=== PATIENT | male | born 1960 | race Caucasian/White ===

== ENCOUNTER 2021-03-13 11:55 | Emergency (ER) | payer BC ==
[~2021-03-13] VITALS: Ht 185.4 cm; Wt 136.0 kg
[2021-03-13 12:23] LABS: BASOPHILS % (AUTO) 1 % (0-10); EOSINOPHILS # (AUTO) 0.1 10^3/uL (0.0-0.3); EOSINOPHILS % (AUTO) 1 % (0-10); HEMATOCRIT 44 % (40-54); HEMOGLOBIN 14.7 G/DL (13.3-17.7); LYMPHOCYTES # (AUTO) 1.8 X 10^3 (1.0-4.0); LYMPHOCYTES % (AUTO) 31 % (12-44); MEAN CORPUSCULAR HEMOGLOBIN 32 PG (25-34); MEAN CORPUSCULAR HGB CONC 34 G/DL (32-36); MEAN CORPUSCULAR VOLUME 94 FL (80-99); MEAN PLATELET VOLUME 8.5 FL (7.4-10.4); MONOCYTES # (AUTO) 0.5 X 10^3 (0.0-1.0); MONOCYTES % (AUTO) 9 % (0-12); NEUTROPHILS # (AUTO) 3.4 X 10^3 (1.8-7.8); NEUTROPHILS % (AUTO) 59 % (42-75); PLATELET COUNT 154 10^3/uL (130-400); WHITE BLOOD COUNT 5.8 10^3/uL (4.3-11.0)
[2021-03-13] MEDS ORDERED: WRF2.5T (12:30)
[2021-03-13] MEDS ORDERED: Fish Oil (12:30)
[2021-03-13] MEDS ORDERED: LISI40TA9 (12:30)
[2021-03-13] MEDS ORDERED: ALBUTEROL (12:30)
--- NOTE | 2021-03-13 12:30 | ED Dyspnea ---
General Chief Complaint: Respiratory Problems Stated Complaint: PULMONARY EMBOLISM Source of Information: Patient History of Present Illness Date Seen by Provider: Mar 13, 2021 Time Seen by Provider: 11:57 Initial Comments 60 yo male presenting from radiology after having a CT scan of his chest due to recurrent shortness of breath with history of recent pulmonary embolus from around May 2020. He states he was taken off of his Warfarin about 3-[address] Victor but he was getting short of breath again so they did a D dimer which was elevated. A CT scan of his chest today showed saddle embolus with right heart strain so he was referred to the ED for more emergent treatment. He gets winded with exertion but states it feels similar to when he was diagnosed last Fall with PE. He was admitted to [facility] for 4-5 days to start treatment at that time. They could not tell him why he was having blood clots. Modifying Factors: Worse With Activity Allergies and Home Medications Allergies Coded Allergies: morphine (Unverified Adverse Reaction, Unknown, 03/13/21) Patient Home Medication List Home Medication List Reviewed: Yes Review of Systems Review of Systems Constitutional: No chills, No fever EENTM: no symptoms reported Respiratory: dyspnea on exertion, short of breath Cardiovascular: No chest pain, No edema Gastrointestinal: no symptoms reported Genitourinary: no symptoms reported Musculoskeletal: no symptoms reported Skin: no symptoms reported Psychiatric/Neurological: No Symptoms Reported Hematologic/Lymphatic: Blood Clots Past Ybqciod-Codrve-Ozkqzm Hx Past Medical History Respiratory: Yes Pulmonary Embolism Cardiac: Yes Hypertension Physical Exam Vital Signs Vital Signs - First Documented 03/13/21 11:55 Temp 36.5 Pulse 88 Resp 20 B/P (MAP) 154/81 (105) Pulse Ox 98 O2 Delivery Room Air Capillary Refill : Height, Weight, BMI Height: '" Weight: lbs. oz. kg; BMI Method: General Appearance: No Apparent Distress, WD/WN HEENT: PERRL/EOMI, Pharynx Normal Neck: Full Range of Motion, Normal Inspection, Non Tender, Supple Respiratory: Chest Non Tender, Lungs Clear, Normal Breath Sounds, No Accessory Muscle Use, No Respiratory Distress Cardiovascular: Regular Rate, Rhythm, Normal Peripheral Pulses Neurologic/Psychiatric: Alert, Oriented x3 Skin: Normal Color, Warm/Dry Progress/Results/Core Measures Results/Orders Lab Results Laboratory Tests Test 03/13/21 12:13 Range/Units White Blood Count 5.8 4.3-11.0 10^3/uL Red Blood Count 4.64 4.35-5.85 10^6/uL Hemoglobin 14.7 13.3-17.7 G/DL Hematocrit 44 40-54 % Mean Corpuscular Volume 94 80-99 FL Mean Corpuscular Hemoglobin 32 25-34 PG Mean Corpuscular Hemoglobin Concent 34 32-36 G/DL Red Cell Distribution Width 13.6 10.0-14.5 % Platelet Count 154 130-400 10^3/uL Mean Platelet Volume 8.5 7.4-10.4 FL Immature Granulocyte % (Auto) 0 % Neutrophils (%) (Auto) 59 42-75 % Lymphocytes (%) (Auto) 31 12-44 % Monocytes (%) (Auto) 9 0-12 % Eosinophils (%) (Auto) 1 0-10 % Basophils (%) (Auto) 1 0-10 % Neutrophils # (Auto) 3.4 1.8-7.8 X 10^3 Lymphocytes # (Auto) 1.8 1.0-4.0 X 10^3 Monocytes # (Auto) 0.5 0.0-1.0 X 10^3 Eosinophils # (Auto) 0.1 0.0-0.3 10^3/uL Basophils # (Auto) 0.0 0.0-0.1 10^3/uL Immature Granulocyte # (Auto) 0.0 0.0-0.1 10^3/uL Prothrombin Time 13.6 12.2-14.7 SEC INR Comment 1.0 0.8-1.4 Activated Partial Thromboplast Time 29 24-35 SEC Troponin I < 0.30 <0.30 NG/ML Pro-B-Type Natriuretic Peptide 47.5 <75.0 PG/ML My Orders Orders - EVE SPENCE MD Cbc With Automated Diff (03/13/21 12:07) Protime With Inr (03/13/21 12:07) Partial Thromboplastin Time (03/13/21 12:07) Ed Iv/Invasive Line Start (03/13/21 12:07) Probnp Fs (03/13/21 12:22) Troponin I Fs (03/13/21 12:22) Heparin Drip 89342 Unit/500ml (Heparin (03/13/21 12:45) Heparin (Bolus Per Protocol) (Heparin (B (03/13/21 12:45) Medications Given in ED Current Medications Medications Dose Ordered Sig/Kelly Route Start Time Stop Time Status Last Admin Dose Admin Heparin Sodium (Porcine) 5,000 unit ONCE ONCE IV 03/13/21 12:45 03/13/21 12:46 DC 03/13/21 13:03 5,000 UNIT Heparin Sodium/ Dextrose 500 ml @ 0 mls/hr Q0M ONCE IV 03/13/21 12:45 03/13/21 12:46 DC 03/13/21 13:03 24 MLS/HR Vital Signs/I&O 03/13/21 11:55 Temp 36.5 Pulse 88 Resp 20 B/P (MAP) 154/81 (105) Pulse Ox 98 O2 Delivery Room Air Progress Progress Note #1: Progress Note pt sent from CT since his report shows saddle pulmonary embolus with right heart strain. Pt states nobody spoke with him to explain why he was in the ED and that he was just here for CT scan because he was having symptoms like last Fall when he had a pulmonary embolism. At that time he was admitted to [facility]. He was on warfarin until a few weeks ago when Dr. Victor had stopped it. The states that he was started having shortness of breath again and they did a D-dimer test which showed it was slightly elevated and told him to have a CT scan of his chest done today. Progress Note #2: Progress Note Dr. Campbell with radiology called and discussed the CT findings directly with me. The patient had a large clot burden and saddle embolus with right heart strain. Advised patient of these findings and by this point his coags and labs are back showing no acute significant normality on these. Will start him on heparin full protocol to treat for pulmonary embolism. Patient was asking about leaving to start the warfarin and I advised him that that would not be enough to immediately start treatment for his pulmonary embolism. He would need admission and was at risk of sudden because of the large blood clot in his lungs. He was fairly agreeable to evaluation and admission to did not want to go to [facility] and wanted to go [place]. He wanted to try being admitted to [facility] initially since he was there last Fall. Progress Note #3: Progress Note 1243 Ivy with [facility] contacted about possible transfer and she advised that they had no beds available so did not have capacity or capability for the patient. 1257 discussed with Sujata at the transfer center from [facility] and she advised that they also were at capacity and had no beds available so they did not have capacity capability for the patient. 1258 I spoke with Anthony at the [facility] access center and was advised that all [facility] facilities were on diversion for capacity and capability until at least March 18. 1303 ISATU Mejia, at [facility] contacted and took information about the patient. She stated that she would have to review the patient with the Physician Advisor to see if they had capacity and capability for the patient. She would then call me back. [id number] ISATU Mejia, called back and stated that Dr. Bernardo would accept the patient for transfer but they were waiting discharges to have open bed for the patient. She will call back as soon as a bed was available. [id number] Checked with ISATU Mejia, at transfer center and they are still working on finding bed placement. Pt remains stable. Diagnostic Imaging Diagonstic Imaging: CT Plain Films/CT/US/NM/MRI: chest Comments [facility]. [place], [place] NAME: LINDSAY VARELA [facility] REC#: [id number] PT STATUS: REG CLI : 1960 PHYSICIAN: VARGAS VICTOR MD ADMIT DATE: 03/13/21/RAD FS Draft Date of Exam:03/13/21 CT ANGIO CHEST W PROCEDURE: CT angiography of the chest with contrast. TECHNIQUE: Multiple contiguous axial images were obtained through the chest after uneventful bolus administration of intravenous contrast. 3D reconstructed CTA MIP acquisitions were also performed. Auto Exposure Controls were utilized during the CT exam to meet ALARA standards for radiation dose reduction. INDICATION: Shortness of breath, chest pain, elevated d-dimer. FINDINGS: The exam confirms a large burden of bilateral pulmonary arterial emboli. A nonocclusive bridging saddle embolus has its apex at the main pulmonary bifurcation extending into the left and right main pulmonary arteries with clot occlusive at the proximal left upper lobe pulmonary artery with at least some degree of thrombus extending into the remaining lobar branches. While the intraventricular septum is nondisplaced and unbowed there is relative prominence of the right ventricular cavity compared to the left ventricular cavity component of elevated right heart pressures cannot be excluded. There is no abnormal caval or hepatovenous reflux of contrast. The SVC is patent and there is no intracardiac chamber mass or thrombus. There is no pleural or pericardial effusion. There were no findings suggestive of pulmonary hemorrhage or lung infarct. There is trace bibasilar subsegmental atelectasis. No evidence for edema or pneumonia. No lung mass or adenopathy. There is no acute chest wall abnormality IMPRESSION: A large burden of bilateral pulmonary arterial emboli with incompletely occlusive bridging saddle embolus through the pulmonary arteries bifurcation extending into the bilateral upper middle and lower lobes occlusive at the left upper lobe level. No findings of lung infarct or pulmonary hemorrhage. A mild prominence of the right ventricle when compared to the left a component of at least mild right heart strain could not be excluded. No other secondary findings of elevated right heart pressures. No findings of neoplasm or acute pleural pathology. Results have been discussed with the Emergency Room physician at time of dictation. Dictated on workstation # [id number] Dict: 03/13/21 1205 Trans: 03/13/21 1233 [facility] [id number] Interpreted by: LILIA CAMPBELL Electronically signed by: Reviewed: Discussed w/Radiologist Departure Impression Primary Impression: Saddle embolus of pulmonary artery with acute cor pulmonale Qualified Codes: I26.02 - Saddle embolus of pulmonary artery with acute cor pulmonale Disposition: 02 XFER SHT-TRM HOSP Condition: Stable Transfer Transfer Reason: Patient preference (Pt and brother gave list of facilities to call and order to call them for pt to be admitted in [facility]) Time Spoke to Accepting Phy: 13:38 Transfer Progress Notes 1303 ISATU Mejia, from Transfer center given information about the patient. She will review with physician advisor and call back to see if they have a bed and capability to take the patient for admit there at or not. [id number] ISATU Mejia, called back and Dr. Bernardo is accepting physician for the patient. Will call back once a bed is available but waiting on discharge and bed to become available. 1910 EMS here to transport pt to [facility] Transfer Facility: [facility] Method of Transfer: EMS Departure-Patient Inst. Referrals: VARGAS VICTOR MD (PCP/Family) Primary Care Physician EVE SPENCE MD Mar 13, 2021 12:30
[2021-03-13 12:32] LABS: PROTHROMBIN TIME PATIENT 13.6 SEC (12.2-14.7)
[2021-03-13] MEDS ORDERED: HEParin 1000 UNIT/ML (10ML VIAL) FOR BOLUS IV ONE (12:45)
[2021-03-13] MEDS ORDERED: HEParin DRIP 25000 UNIT/500ML 500 ML IV ONE (12:45)
[2021-03-13 18:25] VITALS: BP 142/75
== END 2021-03-13 19:25 | disposition short-term general hospital (02) ==
LOC: EDUNIT# 11:57 → ER FS 11:58
DX: I26.02 Saddle embolus of pulmonary artery with acute cor pulmonale (principal); I10 Essential (primary) hypertension
CPT/HCPCS: 36415; 83880; 84484; 85025; 85610; 85730

== ENCOUNTER → 2021-03-13 | Outpatient (CLI) | payer BC ==
[~2021-03-13] MED LIST: ALBUTEROL; CATHETER FLUSH 10 ML SYR IV PRN; Fish Oil; HOLD METFORMIN - RECEIVED CONTRAST 20 ML VIAL IV SCH; IOHEXOL 350 MG/ML 100 ML (OMNIPAQUE 350) VIAL IV ONE; IOHEXOL 350 MG/ML 150 ML (OMNIPAQUE 350) VIAL IV ONE; LISI40TA9; NS 100 ML (IVPB) BAG IV ONE; WRF2.5T
[2021-03-13 11:17] LABS: CREATININE SERUM 1.11 MG/DL (0.60-1.30); POTASSIUM 4.7 MMOL/L (3.6-5.0)
[2021-03-13 11:18] LABS: ALBUMIN 4.4 GM/DL (3.2-4.5); BILIRUBIN,TOTAL 0.4 MG/DL (0.1-1.0); CALCIUM 9.4 MG/DL (8.5-10.1); TOTAL PROTEIN 7.9 GM/DL (6.4-8.2)
--- NOTE | 2021-03-13 12:33 | Diagnostic Imaging Report ---
PROCEDURE: CT angiography of the chest with contrast. TECHNIQUE: Multiple contiguous axial images were obtained through the chest after uneventful bolus administration of intravenous contrast. 3D reconstructed CTA MIP acquisitions were also performed. Auto Exposure Controls were utilized during the CT exam to meet ALARA standards for radiation dose reduction. INDICATION: Shortness of breath, chest pain, elevated d-dimer. FINDINGS: The exam confirms a large burden of bilateral pulmonary arterial emboli. A nonocclusive bridging saddle embolus has its apex at the main pulmonary bifurcation extending into the left and right main pulmonary arteries with clot occlusive at the proximal left upper lobe pulmonary artery with at least some degree of thrombus extending into the remaining lobar branches. While the intraventricular septum is nondisplaced and unbowed there is relative prominence of the right ventricular cavity compared to the left ventricular cavity component of elevated right heart pressures cannot be excluded. There is no abnormal caval or hepatovenous reflux of contrast. The SVC is patent and there is no intracardiac chamber mass or thrombus. There is no pleural or pericardial effusion. There were no findings suggestive of pulmonary hemorrhage or lung infarct. There is trace bibasilar subsegmental atelectasis. No evidence for edema or pneumonia. No lung mass or adenopathy. There is no acute chest wall abnormality IMPRESSION: A large burden of bilateral pulmonary arterial emboli with incompletely occlusive bridging saddle embolus through the pulmonary arteries bifurcation extending into the bilateral upper middle and lower lobes occlusive at the left upper lobe level. No findings of lung infarct or pulmonary hemorrhage. A mild prominence of the right ventricle when compared to the left a component of at least mild right heart strain could not be excluded. No other secondary findings of elevated right heart pressures. No findings of neoplasm or acute pleural pathology. Results have been discussed with the Emergency Room physician at time of dictation. Dictated by: Dictated on workstation # [id number]
== END ==
LOC: RAD FS 10:33
PROVIDERS: ATTEND Family Medicine
DX: I26.99 Other pulmonary embolism without acute cor pulmonale (principal); R79.89 Other specified abnormal findings of blood chemistry
CPT/HCPCS: 36415; 71275; 80053